=== PATIENT | male | born 1975 | race Hispanic/Latino ===

== ENCOUNTER 2018-08-30 12:00 | Emergency (ER) | payer OTHER ==
[2018-08-30] MEDS ORDERED: PREDNISOLONE 15 MG/5 ML ONE (13:16)
== END 2018-08-30 13:34 | disposition home or self-care (01) ==
LOC: EDH 12:00
DX: G51.0 Bell's palsy (principal)

== ENCOUNTER 2025-01-13 05:58 | Observation (INO) | payer BC ==
[2025-01-09 09:20] LABS: BASOPHILS # (AUTO) 0.03 K/uL (0.00-0.20); BASOPHILS % (AUTO) 0.4 % (0.0-5.0); EOSINOPHILS # (AUTO) 0.08 K/uL (0.00-0.70); EOSINOPHILS % (AUTO) 1.2 % (0.0-8.0); HEMATOCRIT 43.5 % (42-54); IMMATURE GRANULOCYTE ABSOLUTE 0.03 K/uL (0-1); LYMPHOCYTES # (AUTO) 2.5 K/uL (1.0-4.8); MEAN CORPUSCULAR HEMOGLOBIN 30.5 pg (27.0-33.0); MEAN CORPUSCULAR VOLUME 89.7 fL (79-99); MONOCYTES # (AUTO) 0.5 K/uL (0.1-1.0); MONOCYTES % (AUTO) 7.5 % (3.0-13.0); NEUTROPHILS # (AUTO) 3.6 K/uL (1.8-7.7); NEUTROPHILS % (AUTO) 53.5 % (40.0-77.0); PLATELET COUNT (AUTO) 182 K/uL (130-400); RED BLOOD CELL COUNT(AUTO) 4.85 MIL/uL (4.50-6.20); RED CELL DISTRIBUTION WIDTH 12.3 % (11.0-15.5); WHITE BLOOD COUNT (AUTO) 6.8 K/uL (4.8-10.8)
[2025-01-09 09:27] LABS: ALBUMIN 4.3 g/dL (3.5-5.0); POTASSIUM 4.7 mmol/L (3.5-5.1)
[2025-01-09 09:43] LABS: INR 1.03 (0.85-1.15); PROTHROMBIN TIME 10.9 SEC (9.6-11.6)
[2025-01-09 09:44] LABS: PARTIAL THROMBOPLASTIN TIME 26.8 SEC (26.3-35.5)
--- NOTE | 2025-01-09 10:00 | NUR ---
RE: IS INITIAL IS INITIAL INSTRUCTIONS DONE BY RT JACK DURING PREOP.
[2025-01-09 11:42] VITALS: PULSE 57; RESP 17; TEMP 97.9
[2025-01-13] VITALS (26 sets, daily range): BP systolic 108–158; BP diastolic 62–90; PULSE 69–117; RESP 13–20; TEMP 97.7–99.4; O2SAT 98–99
[~2025-01-13] VITALS: Ht 172.7 cm; Wt 107.4 kg
[~2025-01-13 05:58] MED LIST: NAPR-1506 PO
[2025-01-13] MEDS: LACTATED RINGERS 1000ML IV SCH (06:13)
[2025-01-13] MEDS: ceFAZolin SODIUM 2 GM VIAL ONE (06:19)
[2025-01-13] MEDS: GABAPENTIN 300 MG CAPSULE ONE (06:32)
[2025-01-13] MEDS: FAMOTIDINE 20MG VIAL IV ONE (06:32)
[2025-01-13] MEDS ORDERED: ketaMINE 50MG/ML SYRINGE 50 MG/ML DISP.SYRIN ONE (06:40)
[2025-01-13] MEDS ORDERED: ROPivacaine 0.5% 5MG/ML 30ML ONE (06:40)
[2025-01-13] MEDS ORDERED: proPOFol 10 MG/ML 20ML VIAL IV ONE (06:45)
[2025-01-13] MEDS ORDERED: FENTanyl CITRate PF 50 MCG/1 ML 2ML VIAL ONE (06:45)
[2025-01-13] MEDS ORDERED: rocuRONium bROMide 10MG/1ML 5ML VL ONE (06:46)
[2025-01-13] MEDS ORDERED: LIDOCAINE PF 100MG/5ML (2%) SYRINGE 5ML ONE (06:50)
[2025-01-13] MEDS ORDERED: MIDAZOLAM HCL 1 MG/ML 2ML VIAL ONE (06:50)
--- NOTE | 2025-01-13 07:15 | DS ---
Discharge Summary Hospital Course Summary: The patient was admitted to the hospital postoperatively on 01/13/2025 after undergoing right total hip arthroplasty. They did well with routine postoperative pain control. They worked well with physical therapy. They developed some acute blood loss anemia but remained asymptomatic. The hospital course was otherwise uncomplicated. They were subsequently able to be discharged on postoperative day [] once discharge arrangements were made with correction facility. Pilot Can Router(s): None Procedure(s): Right total hip arthroplasty, 01/13/2025 Assessment/Plan: ASSESSMENT: Status post right total hip arthroplasty Acute blood loss anemia PLAN: See discharge instructions Discharge Instructions: Begin working with physical therapy at the facility. Remembered do not flex the hip more than 90 and do not cross midline at the knees or ankles for the 1st six weeks. If you are side sleeper place a pillow between the knees and ankles to prevent the legs from crossing. Dressing may be removed 01/15/2025 and left open to air. Showers ok allowing soap and water to run over the wound. Pat dry. Do not submerge wound in tub/pool. Do not apply ointments. Do not apply Betadine. Do not apply peroxide. Ice packs to decrease pain/swelling. Prescriptions have been sent to the pharmacy: *Jackpot 5/325mg 1-2 tab every 6 hours as needed for severe pain. (please call for refills) Cyclobenzaprine 5mg 1 tab every 8 hours as needed for muscle spasm pain. Gabapentin 100mg 1 tab every 8 hours (may discontinue if drowsy). Colace 100mg 1 tab orally twice a day as needed for constipation. Aspirin 325mg for 30 days to prevent blood clots. Call for a follow-up appointment in 2-3 weeks at [facility]. Home Medications: Reported Medications Naproxen (Naproxen) 500 Mg Tablet., 500 MG PO BID PRN for PAIN, TAB 01/09/25 JH DURBIN MD Jan 13, 2025 07:15
[2025-01-13] MEDS ORDERED: dexaMETHasone SOD PHOSPHATE 10MG/ML 1ML VIAL ONE (07:25)
[2025-01-13] MEDS ORDERED: ondanSETRON 4MG INJ ONE (07:25)
[2025-01-13] MEDS: TRANEXAMIC ACID 1000MG/10ML ONE (07:25)
[2025-01-13] MEDS ORDERED: DiphenhydrAMINE HCL 50 MG/ML VIAL IVP PRN (07:30)
[2025-01-13] MEDS ORDERED: CALCIUM CARB 500MG PO PRN (07:30)
[2025-01-13] MEDS ORDERED: PoTASSium chloRIDE 20MEQ/100ML 100 ML IV PRN (07:30)
[2025-01-13] MEDS ORDERED: PoTASSium chl 10% ELIXIR 20MEQ 20 MEQ/15 ML UDCUP PO PRN (07:30)
[2025-01-13] MEDS ORDERED: ondanSETRON 4MG INJ IVP PRN (07:30)
[2025-01-13] MEDS ORDERED: HYDROcodone/APAP 5/325 1 TAB TABLET PO PRN (07:30)
[2025-01-13] MEDS: ketOROlac 15MG/ML VIAL (15MG/ML) IV SCH (07:30)
[2025-01-13] MEDS ORDERED: PoTASSium chloRIDE 20MEQ ER 20 MEQ ERTAB PO PRN (07:30)
[2025-01-13] MEDS ORDERED: FERROUS FUMARATE 324 MG TABLET PO PRN (07:30)
[2025-01-13] MEDS ORDERED: dexmedeTOMIDine HCL 200 MCG/2 ML VIAL IV ONE (07:49)
[2025-01-13] MEDS ORDERED: phenylEPHRINE HCL 10 MG/ML 1ML VIAL IV ONE (08:20)
[2025-01-13] MEDS: doCUSate SODIUM 100 MG CAP PO SCH (09:00)
[2025-01-13] MEDS: TRANEXAMIC ACID 1000MG/10ML IV ONE (09:30)
[2025-01-13] MEDS ORDERED: NEOSTIGMINE METHYLSULFATE 1MG/ML IV ONE (09:58)
[2025-01-13] MEDS ORDERED: GLYCOPYRROLATE 0.2 MG/ML 5 ML VIAL ONE (09:58)
[2025-01-13] MEDS: ondanSETRON 4MG INJ ONE (10:43)
[2025-01-13] MEDS: morPHINE 2 MG SYG ONE (10:45)
--- NOTE | 2025-01-13 11:09 | OP ---
Operative Note: DATE OF PROCEDURE: 01/13/25 SURGEON: JH DURBIN MD INSECTICIDE MIXER: Shelli Stoddard and Domingo Estrada ANESTHESIA: General and fascia iliaca block ANESTHESIOLOGIST/INSPECTOR FUEL HOSE: Divine Chatman PREOPERATIVE DIAGNOSIS: Right hip osteoarthritis POSTOPERATIVE DIAGNOSIS: Right hip osteoarthritis PROCEDURE: Right total hip arthroplasty ESTIMATED BLOOD LOSS: 200 cc INDICATIONS: 49-year-old male with right hip osteoarthritis failing conservative management. After discussion of the risks, benefits, and alternatives, the patient voluntarily agreed to undergo the aforementioned procedure. IMPLANTS: Sun and Nephew 56 mm R3 acetabular component with 6.5 mm screws x2 and central hole cover, 0 degree XLPE polyethylene liner, size 8 standard offset anthology stem with a 40 mm Oxinium +0 head DESCRIPTION OF PROCEDURE: Patient was properly identified in the preoperative holding area. Surgical site marking was verified and surgery consent reviewed. The patient was then taken to the operating room and placed in supine position on the OR table. After induction of general anesthesia, preoperative antibiotics were given. The patient was then transitioned in the lateral decubitus position with the right side up. All bony prominences were well-padded. Right lower extremity was then prepped and draped in the usual sterile fashion. Surgical time out was done verifying correct surgery, side, site, and location to be performed. We then began the procedure by making approximately 15 cm long incision centered over the greater trochanter. Here we came sharply through skin down to the fascia. Hemostasis was then achieved using Bovie electrocautery. We then incised fascia in line with the skin incision and finger split the tensor muscle proximally. We then placed our Charnley retractor. At this point we identified the vastus ridge and began elevating the full-thickness soft tissue flap off of the vastus ridge, splitting the vastus lateralis and gluteus muscles as necessary. We then proceeded to externally rotate the femur while making this flap. We resected part of the anterior capsule. The femoral head and neck was then delivered into view. We then dislocated the hip and performed a femoral neck osteotomy approximately half fingerbreadth proximal lesser trochanter. We then placed our retractors around the superior and anterior portion of the acetabulum and began to remove the labrum circumferentially. We then began reaming the acetabulum where we reamed up to a size 55 ensuring appropriate anteversion and abduction. We then proceeded to trial with the size 55 acetabular component and this appeared to sit well. We opened our size 56 acetabular component and after irrigating out the wound malleted this into place. It appeared to have good press-fit however we elected to place two of the 6.5 mm screws as well. We drilled and filled the screws in standard fashion in the posterior superior portion of the cup. We then placed the manhole cover on the center of the cup. The wound was thoroughly irrigated out further and we placed the acetabular liner and impacted this in place in standard fashion. We then proceeded to reposition our retractors to elevate the proximal femur out of the wound. We then used the box chisel and canal finder to began preparing the femoral side and sequentially broached up to the aforementioned size stem. Once we felt we had good fit, fill, and control of the femur with the stem in place we then used our trial head component and reduce the hip. Upon reduction, we had appropriate soft tissue tensioning, limb length and stable range of motion. We therefore dislocated the hip once more removed our trial components thoroughly irrigated the out the wound and placed our final components in standard fashion. The hip was then reduced with the final components in place. It was found to be stable through range of motion with appropriate soft tissue tensioning and appropriate limb length. At this point we placed a bump under the knee and the foot on the male with a stack of towels to allow for internal rotation. We repaired the abductors back to the greater trochanter using #5 Ethibond. We then repaired the rent in the vastus lateralis and gluteus muscles using #1 Vicryl in a running fashion. We removed our Charnley retractor and began to repair the IT band using #1 Vicryl in interrupted [id number] fashion. At this point we began to close her subcutaneous tissue using 2-0 Vicryl. Running 3-0 Monocryl in subcuticular fashion with Dermabond placed over this for the skin. Island barrier dressing was then applied. Patient was returned to supine position, awakened from anesthesia, and taken to the recovery room in stable condition. JH DURBIN MD Jan 13, 2025 11:09
[2025-01-13] MEDS: HYDROcodone/APAP 5/325 1 TAB TABLET ONE (11:20)
[2025-01-13] MEDS: CYCLOBENZAPRINE HCL 10 MG TABLET ONE (11:20)
[2025-01-13] MEDS: GABApentin 100 MG CAPSULE PO SCH (11:21)
--- NOTE | 2025-01-13 11:38 | HMCIMG ---
HIP BILAT 2VW HISTORY: Status post hip surgery COMPARISON: None TECHNIQUE: 2 images of bilateral hips were obtained. FINDINGS: Total right hip replacement changes are seen. Alignment appears be grossly adequate. There is no acute displaced fracture or dislocation. Degenerative changes are seen. IMPRESSION: 1. Findings as described above.
--- NOTE | 2025-01-13 11:47 | HMCIMG ---
HIP UNILAT 4VW RIGHT REASON: ORIF RIGHT RAMY, SX. COMPARISON: None TECHNIQUE: Fluoroscopic images of right hip were obtained. FINDINGS: Please see procedure report by referring physician. IMPRESSION: Intraoperative films.
[2025-01-13] MEDS: ceFAZolin SODIUM 2 GM VIAL IVP SCH (12:30)
[2025-01-13] MEDS: GABApentin 100 MG CAPSULE ONE (13:17)
[2025-01-13] MEDS: ketOROlac 15MG/ML VIAL (15MG/ML) ONE (13:24)
[2025-01-13] MEDS: acetaMINOPHEN 100 ML ONE (14:01)
[2025-01-13] MEDS: 0.9%NACL 1000ML 1,000 ML IV SCH (14:02)
[2025-01-13] MEDS: polyETHYLene GLYCol 3350 17 GM POWD.PACK PO SCH (14:03)
[2025-01-13] MEDS: HYDROcodone/APAP 5/325 1 TAB TABLET PO PRN ×2 (14:11→20:08)
--- NOTE | 2025-01-13 14:15 | NUR ---
Patient and spouse have not made a decision as to home vs rehab. Patient will need a SW if DC'd home. Patient has three step to enter home no handrails. Educated patient to request pain meds with breakfast and lunch to be ready for PT. Patient and spouse voiced understanding. Addendum: 01/13/25 at 1724 by MAXINE MCLAIN PT Amended: Links added.
--- NOTE | 2025-01-13 15:45 | NUR ---
ORTHO COORDINATOR: TEACHING REGARDING DVT AND PNEUMONIA PREVENTION, PAIN EXPECTATIONS AND PAIN MANAGEMENT. PATIENT UP TO CHAIR. ICE PACK APPLIED TO RIGHT HIP. B SCD SLEEVES IN ROOM. SCD MACHINE IN ROOM. INCENTIVE SPIROMETER AT BEDSIDE. PATIENT RETURN DEMONSTRATED PROPER USE AND FREQUENCY USE OF DEVICE. PATIENT RETURN DEMONSTRATED PROPER FOOT FLEXION/EXTENSION EXERCISES. NUMERIC PAIN SCALE REVIEWED. PATIENT INSTRUCTED TO PERFORM SELF PAIN EVALUATIONS EVERY FOUR HOURS, TO ASSIGN A NUMERIC PAIN SCORE AND TYPE OF PAIN. TO CALL FOR NURSE AND PROVIDE INFORMATION SO APPROPRIATE MEDICATION CAN BE ADMINISTERED FOR PAIN. PATIENT AND VERBALIZED UNDERSTANDING TO INSTRUCTIONS. PATIENT AND STATE DISCHARGE PLAN IS FOR REHAB. NO ADDITIONAL QUESTIONS OR CONCERNS AT THIS TIME.
[2025-01-13] MEDS: CYCLOBENZAPRINE HCL 10 MG TABLET PO PRN (20:08)
[2025-01-14] VITALS (8 sets, daily range): BP systolic 126–144; BP diastolic 71–82; PULSE 69–108; RESP 18–19; TEMP 98–98.9; O2SAT 97–99
[2025-01-14 04:42] LABS: HEMATOCRIT 36.1 % (42-54); MEAN CORPUSCULAR HEMOGLOBIN 30.7 pg (27.0-33.0); RED BLOOD CELL COUNT(AUTO) 3.88 MIL/uL (4.50-6.20); RED CELL DISTRIBUTION WIDTH 12.7 % (11.0-15.5); WHITE BLOOD COUNT (AUTO) 10.3 K/uL (4.8-10.8)
[2025-01-14 04:56] LABS: CREATININE 0.8 mg/dL (0.5-1.3)
[2025-01-14] MEDS: ASPIRIN 325MG EC TAB PO SCH (07:27)
[2025-01-14] MEDS: ASPIRIN 325MG TAB ONE (07:29)
[2025-01-14] MEDS ORDERED: ketOROlac 15MG/ML VIAL (15MG/ML) IV PRN (07:30)
--- NOTE | 2025-01-14 08:08 | PN ---
Ortho postop day one. This morning the patient is awake alert and oriented. He is out of bed in a chair resting comfortably in no acute distress reporting adequate pain control and a fairly restful night. Vital signs have remained stable afebrile. Laboratory results reviewed. Noted to have a drop in hemoglobin and hematocrit as expected after total hip arthroplasty. Patient is currently asymptomatic and we will address per protocol as necessary. Voiding on his own without difficulty. Operative findings discussed with the patient. Dressing is intact. Distal neurovascular exam intact. Gastrocnemius soft nontender. Negative Homans. SCD sleeves on but not connected since he is out of bed. Reinforced incentive spirometry. Ambulated yesterday with physical therapy we about 30 ft and is pending further physical therapy this morning. Patient is anticipating a skilled nurse facility upon discharge. Assessment: Status post right total hip arthroplasty. Asymptomatic acute postoperative blood loss anemia. Plan: Continue with Dr. Arthur's RAMY protocol and discharge planning. Asymptomatic acute postoperative blood loss anemia addressed with the protocol Vitals/Labs Vital Signs Date Time Temp Pulse Resp B/P (MAP) Pulse Ox O2 Delivery O2 Flow Rate FiO2 01/14/25 03:52 98.4 71 18 134/77 96 Room Air 21 01/13/25 20:00 2.0 Laboratory Tests 01/14/25 03:55 Medications Current Medications Lactated Ringer's 1,000 ml KVO IV Last administered on 01/13/25at 06:14; Start 01/13/25 at 06:30; Stop 02/12/25 at 06:29 Cefazolin Sodium 2 gm STK-MED ONCE .ROUTE Last administered on 01/13/25at 07:34; Start 01/13/25 at 06:15; Stop 01/13/25 at 06:16; Status DC Gabapentin 300 mg STK-MED ONCE .ROUTE; Start 01/13/25 at 06:32; Stop 01/13/25 at 06:32; Status DC Acetaminophen 100 ml @ As Directed STK-MED ONCE .ROUTE; Start 01/13/25 at 06:32; Stop 01/13/25 at 06:32; Status DC Famotidine 20 mg STK-MED ONCE IV; Start 01/13/25 at 06:32; Stop 01/13/25 at 06:33; Status DC Ropivacaine 150 mg STK-MED ONCE .ROUTE; Start 01/13/25 at 06:40; Stop 01/13/25 at 06:40; Status DC Ketamine HCl 50 mg STK-MED ONCE .ROUTE; Start 01/13/25 at 06:40; Stop 01/13/25 at 06:40; Status DC Propofol 200 mg STK-MED ONCE IV; Start 01/13/25 at 06:45; Stop 01/13/25 at 06:45; Status DC Fentanyl Citrate 100 mcg STK-MED ONCE .ROUTE; Start 01/13/25 at 06:45; Stop 01/13/25 at 06:46; Status DC Rocuronium Hickory 50 mg STK-MED ONCE .ROUTE; Start 01/13/25 at 06:46; Stop 01/13/25 at 06:46; Status DC Lidocaine HCl 100 mg STK-MED ONCE .ROUTE; Start 01/13/25 at 06:50; Stop 01/13/25 at 06:50; Status DC Midazolam HCl 2 mg STK-MED ONCE .ROUTE; Start 01/13/25 at 06:50; Stop 01/13/25 at 06:51; Status DC Tranexamic Acid 1,000 mg STK-MED ONCE .ROUTE Last administered on 01/13/25at 07:25; Start 01/13/25 at 06:59; Stop 01/13/25 at 07:00; Status DC Sodium Chloride 1,000 ml @ 100 mls/hr Q10H IV Last administered on 01/14/25at 03:15; Start 01/13/25 at 07:30; Stop 01/14/25 at 07:29; Status DC Polyethylene Glycol 17 gm DAILY PO Last administered on 01/14/25at 07:26; Start 01/13/25 at 09:00; Stop 02/12/25 at 08:59 Bisacodyl 10 mg DAILY PRN RC; Start 01/16/25 at 07:30; Stop 02/15/25 at 07:29 Ketorolac Tromethamine 15 mg Q6H PRN IV; Start 01/14/25 at 07:30; Stop 01/19/25 at 07:29 Ferrous Fumarate 324 mg DAILY PRN PO; Start 01/13/25 at 07:30; Stop 02/12/25 at 07:29 Calcium Carbonate 500 mg Q12H PRN PO; Start 01/13/25 at 07:30; Stop 02/12/25 at 07:29 Diphenhydramine HCl 25 mg Q6H PRN IVP; Start 01/13/25 at 07:30; Stop 02/12/25 at 07:29 Ondansetron HCl 4 mg Q6H PRN IVP; Start 01/13/25 at 07:30; Stop 02/12/25 at 07:29 Cefazolin Sodium 2 gm Q8H IVP Last administered on 01/13/25at 20:00; Start 01/13/25 at 12:30; Stop 01/13/25 at 20:31; Status DC Gabapentin 100 mg TID PO Last administered on 01/14/25at 07:26; Start 01/13/25 at 09:00; Stop 02/12/25 at 08:59 Cyclobenzaprine HCl 5 mg Q8H PRN PO Last administered on 01/13/25at 20:08; Start 01/13/25 at 07:30; Stop 02/12/25 at 07:29 Docusate Sodium 100 mg BID PO Last administered on 01/14/25at 07:26; Start 01/13/25 at 09:00; Stop 02/12/25 at 08:59 Ketorolac Tromethamine 15 mg Q8H IV Last administered on 01/13/25at 23:19; Start 01/13/25 at 07:30; Stop 01/13/25 at 23:31; Status DC Aspirin 325 mg DAILY PO Last administered on 01/14/25at 07:27; Start 01/14/25 at 09:00; Stop 02/13/25 at 08:59 Potassium Chloride 100 ml @ 100 mls/hr AD PRN IV; Start 01/13/25 at 07:30; Stop 02/12/25 at 07:29 Potassium Chloride 20 meq AD PRN PO; Start 01/13/25 at 07:30; Stop 02/12/25 at 07:29 Potassium Chloride 20 meq AD PRN PO; Start 01/13/25 at 07:30; Stop 02/12/25 at 07:29 Tramadol HCl 50 mg Q6H PRN PO; Start 01/13/25 at 07:30; Stop 01/18/25 at 07:29 Acetaminophen/ Hydrocodone Bitart Q4H PRN PO; Start 01/13/25 at 07:30; Stop 01/13/25 at 07:24; Status DC Acetaminophen/ Hydrocodone Bitart 1 tab Q6H PRN PO Last administered on 01/14/25at 07:27; Start 01/13/25 at 07:30; Stop 01/18/25 at 07:29 Acetaminophen/ Hydrocodone Bitart 1 tab Q6H PRN PO Last administered on 01/14/25at 03:16; Start 01/13/25 at 07:30; Stop 01/18/25 at 07:29 Ondansetron HCl 4 mg STK-MED ONCE .ROUTE; Start 01/13/25 at 07:25; Stop 01/13/25 at 07:25; Status DC Dexamethasone Sodium Phosphate 10 mg STK-MED ONCE .ROUTE; Start 01/13/25 at 07:25; Stop 01/13/25 at 07:25; Status DC Dexmedetomidine HCl 200 mcg STK-MED ONCE IV; Start 01/13/25 at 07:49; Stop 01/13/25 at 07:50; Status DC Phenylephrine HCl 10 mg STK-MED ONCE IV; Start 01/13/25 at 08:20; Stop 01/13/25 at 08:20; Status DC Tranexamic Acid 1,000 mg STK-MED ONCE IV Last administered on 01/13/25at 09:30; Start 01/13/25 at 09:30; Stop 01/13/25 at 09:32; Status DC Glycopyrrolate 1 mg STK-MED ONCE .ROUTE; Start 01/13/25 at 09:58; Stop 01/13/25 at 09:58; Status DC Neostigmine Methylsulfate 10 mg STK-MED ONCE IV; Start 01/13/25 at 09:58; Stop 01/13/25 at 09:59; Status DC Morphine Sulfate 2 mg STK-MED ONCE .ROUTE Last administered on 01/13/25at 10:45; Start 01/13/25 at 10:35; Stop 01/13/25 at 10:35; Status DC Ondansetron HCl 4 mg STK-MED ONCE .ROUTE Last administered on 01/13/25at 10:43; Start 01/13/25 at 10:36; Stop 01/13/25 at 10:37; Status DC Acetaminophen/ Hydrocodone Bitart 1 tab STK-MED ONCE .ROUTE Last administered on 01/13/25at 11:20; Start 01/13/25 at 11:18; Stop 01/13/25 at 11:18; Status DC Cyclobenzaprine HCl 10 mg STK-MED ONCE .ROUTE Last administered on 01/13/25at 11:20; Start 01/13/25 at 11:18; Stop 01/13/25 at 11:18; Status DC Gabapentin 100 mg STK-MED ONCE .ROUTE; Start 01/13/25 at 11:18; Stop 01/13/25 at 11:18; Status DC Ketorolac Tromethamine 15 mg STK-MED ONCE .ROUTE Last administered on 01/13/25at 13:24; Start 01/13/25 at 13:20; Stop 01/13/25 at 13:20; Status DC Aspirin 325 mg STK-MED ONCE .ROUTE Last administered on 01/14/25at 07:29; Start 01/14/25 at 07:25; Stop 01/14/25 at 07:25; Status DC HARLEY ARMSTRONG NP Jan 14, 2025 08:08
--- NOTE | 2025-01-14 11:58 | NUR ---
[facility] CM MET WITH PT AND SPOUSE THIS MORNING, INITIAL ASSESSMENT DONE. PATIENT IS INDEPENDENT PRIOR TO ADMISSION, LIVES AT HOME WITH AND 2 ADULT CHILDREN. PATIENT HAS A BUILT IN [employer]. DENIES ANY OTHER EQUIPMENT/SERVICES. FEELS SAFE TO GO BACK HOME, ABLE TO ASSIST WITH TRANSPORTATION AND NEEDS NECESSARY. DISCUSSED MD RECOMMENDATIONS FOR SHORT TERM REHAB AT SNF, PT AGREEABLE, CONSENT SIGNED SADI FOR [facility]. [facility] ONCE APPROVED. CM TO CONTINUE TO FOLLOW UP. Addendum: 01/14/25 at 1202 by MEL PAYTON LVN CM Amended: Links added.
[2025-01-14] MEDS: HYDROcodone/APAP 5/325 1 TAB TABLET PO PRN (17:22)
--- NOTE | 2025-01-14 22:10 | PN ---
PROGRESS NOTE PROGRESS NOTE DATE OF PROGRESS NOTE: 01/14/25 SUBJECTIVE: Patient is status post hip surgery VITAL SIGNS Vital Signs Date Time Temp Pulse Resp B/P (MAP) Pulse Ox O2 Delivery O2 Flow Rate FiO2 01/14/25 20:38 98.1 76 19 142/77 99 Room Air 21 01/14/25 08:00 0 PHYSICAL EXAM: Atraumatic normocephalic head Neck is supple Lungs are clear to auscultation percussion Heart was S1-S2 is heard Extremities no pedal edema Skin exam unremarkable LABORATORY: Laboratory Result(s) Test 01/14/25 03:55 White Blood Count 10.3 K/uL (4.8-10.8) Red Blood Count 3.88 MIL/uL (4.50-6.20) Hemoglobin 11.9 g/dL (14.0-18.0) Hematocrit 36.1 % (42-54) Mean Corpuscular Volume 93.0 fL (79-99) Mean Corpuscular Hemoglobin 30.7 pg (27.0-33.0) Mean Corpuscular Hemoglobin Concent 33.0 g/dL (32.0-36.0) Red Cell Distribution Width 12.7 % (11.0-15.5) Platelet Count 156 K/uL (130-400) Mean Platelet Volume 12.6 fL (7.5-10.5) Nucleated Red Blood Cells 0.0 % (0.0-0.19) Sodium Level 137 mmol/L (136-145) Potassium Level 4.0 mmol/L (3.5-5.1) Chloride Level 104 mmol/L (101-111) Carbon Dioxide Level 27 mmol/L (21-32) Blood Urea Nitrogen 14 mg/dL (7-18) Creatinine 0.8 mg/dL (0.5-1.3) Glomerular Filtration Rate Calc 107 mL/min (>90) Random Glucose 140 mg/dL (70-105) Total Calcium 8.3 mg/dL (8.5-10.1) INPATIENT MEDS: Current Medications Medications Dose Ordered Sig/Rosaline Start Time Stop Time Status Last Admin Lactated Ringer's 1,000 ml KVO 01/13/25 06:30 02/12/25 06:29 01/13/25 06:14 Polyethylene Glycol 17 gm DAILY 01/13/25 09:00 02/12/25 08:59 01/14/25 07:26 Bisacodyl 10 mg DAILY PRN 01/16/25 07:30 02/15/25 07:29 Ketorolac Tromethamine 15 mg Q6H PRN 01/14/25 07:30 01/19/25 07:29 Ferrous Fumarate 324 mg DAILY PRN 01/13/25 07:30 02/12/25 07:29 Calcium Carbonate 500 mg Q12H PRN 01/13/25 07:30 02/12/25 07:29 Diphenhydramine HCl 25 mg Q6H PRN 01/13/25 07:30 02/12/25 07:29 Ondansetron HCl 4 mg Q6H PRN 01/13/25 07:30 02/12/25 07:29 Gabapentin 100 mg TID 01/13/25 09:00 02/12/25 08:59 01/14/25 21:40 Cyclobenzaprine HCl 5 mg Q8H PRN 01/13/25 07:30 02/12/25 07:29 01/14/25 21:40 Docusate Sodium 100 mg BID 01/13/25 09:00 02/12/25 08:59 01/14/25 21:39 Aspirin 325 mg DAILY 01/14/25 09:00 02/13/25 08:59 01/14/25 07:27 Potassium Chloride 100 ml @ 100 mls/hr AD PRN 01/13/25 07:30 02/12/25 07:29 Potassium Chloride 20 meq AD PRN 01/13/25 07:30 02/12/25 07:29 Potassium Chloride 20 meq AD PRN 01/13/25 07:30 02/12/25 07:29 Tramadol HCl 50 mg Q6H PRN 01/13/25 07:30 01/18/25 07:29 Acetaminophen/ Hydrocodone Bitart 1 tab Q6H PRN 01/13/25 07:30 01/18/25 07:29 01/14/25 21:40 Acetaminophen/ Hydrocodone Bitart 2 tab Q6H PRN 01/14/25 16:00 01/18/25 07:29 01/14/25 17:22 PLAN: Postop pain DVT prophylaxis to continue and monitor no other active medical issues discharge planning probably to [facility] SAURABH HURTADO MD Jan 14, 2025 22:10
[2025-01-15 04:03] VITALS: BP 118/78; PULSE 76; RESP 19; TEMP 99.3
[2025-01-15 08:00] VITALS: BP 129/75; PULSE 87; RESP 17; TEMP 98.5; O2SAT 96
[2025-01-15] MEDS: traMADol HCL 50 MG TABLET PO PRN (08:06)
[2025-01-15 12:00] VITALS: BP 133/80; PULSE 74; RESP 17; TEMP 98.7
--- NOTE | 2025-01-15 14:15 | NUR ---
ORTHO COORDINATOR: REINFORCED TEACHING. PATIENT UP TO CHAIR. REPORTS PAIN MANAGED. HAS SHOWERED. REINFORCED NEED TO CONTINUE USE OF INCENTIVE SPIROMETER AND FOOT FLEXION/EXTENSION EXERCISES. ENCOURAGED PATIENT TO CONTINUE PAIN MANAGEMENT PRIOR TO PHYSICAL THERAPY WHILE IN REHAB AND DURING PERIODS OF HIGH ACTIVITY. PATIENT HAS NO FURTHER QUESTIONS/CONCERNS AT THIS TIME.
[2025-01-15 16:00] VITALS: BP 118/70; PULSE 88; RESP 17; TEMP 98.8
[2025-01-15 16:02] VITALS: RESP 16
--- NOTE | 2025-01-15 16:06 | PN ---
Ortho postop day two. This afternoon the patient is out of bed in a chair resting comfortably reporting adequate pain control. He states that he had a small BM today after warm prune juice. Vital signs stable, afebrile No acute distress, alert and oriented x3 Nonlabored breathing Right hip: -Dressing is intact. Removed. -Incision is clean and dry. -Distal neurovascular exam intact. -Gastrocnemius soft nontender. -Negative Homans. -SCD sleeves on but not connected since he is out of bed. Ambulated 100 ft with physical therapy this morning Discharge planning is for [facility] Assessment: POD 2 Status post right total hip arthroplasty. Asymptomatic acute postoperative blood loss anemia. Plan: Continue with Dr. Arthur's RAMY protocol and discharge planning. Asymptomatic acute postoperative blood loss anemia addressed with the protocol Stable for transfer once approved for SNF Vitals/Labs Vital Signs Date Time Temp Pulse Resp B/P (MAP) Pulse Ox O2 Delivery O2 Flow Rate FiO2 01/15/25 12:00 98.8 74 17 133/80 98 Room Air 01/15/25 04:03 21 01/14/25 19:05 0 Medications Current Medications Lactated Ringer's 1,000 ml KVO IV Last administered on 01/13/25at 06:14; Start 01/13/25 at 06:30; Stop 01/15/25 at 09:58; Status DC Cefazolin Sodium 2 gm STK-MED ONCE .ROUTE Last administered on 01/13/25at 07:34; Start 01/13/25 at 06:15; Stop 01/13/25 at 06:16; Status DC Gabapentin 300 mg STK-MED ONCE .ROUTE; Start 01/13/25 at 06:32; Stop 01/13/25 at 06:32; Status DC Acetaminophen 100 ml @ As Directed STK-MED ONCE .ROUTE; Start 01/13/25 at 06:32; Stop 01/13/25 at 06:32; Status DC Famotidine 20 mg STK-MED ONCE IV; Start 01/13/25 at 06:32; Stop 01/13/25 at 06:33; Status DC Ropivacaine 150 mg STK-MED ONCE .ROUTE; Start 01/13/25 at 06:40; Stop 01/13/25 a t 06:40; Status DC Ketamine HCl 50 mg STK-MED ONCE .ROUTE; Start 01/13/25 at 06:40; Stop 01/13/25 at 06:40; Status DC Propofol 200 mg STK-MED ONCE IV; Start 01/13/25 at 06:45; Stop 01/13/25 at 06:45; Status DC Fentanyl Citrate 100 mcg STK-MED ONCE .ROUTE; Start 01/13/25 at 06:45; Stop 01/13/25 at 06:46; Status DC Rocuronium [place] 50 mg STK-MED ONCE .ROUTE; Start 01/13/25 at 06:46; Stop 01/13/25 at 06:46; Status DC Lidocaine HCl 100 mg STK-MED ONCE .ROUTE; Start 01/13/25 at 06:50; Stop 01/13/25 at 06:50; Status DC Midazolam HCl 2 mg STK-MED ONCE .ROUTE; Start 01/13/25 at 06:50; Stop 01/13/25 at 06:51; Status DC Tranexamic Acid 1,000 mg STK-MED ONCE .ROUTE Last administered on 01/13/25at 07:25; Start 01/13/25 at 06:59; Stop 01/13/25 at 07:00; Status DC Sodium Chloride 1,000 ml @ 100 mls/hr Q10H IV Last administered on 01/14/25at 03:15; Start 01/13/25 at 07:30; Stop 01/14/25 at 07:29; Status DC Polyethylene Glycol 17 gm DAILY PO Last administered on 01/15/25at 08:06; Start 01/13/25 at 09:00; Stop 02/12/25 at 08:59 Bisacodyl 10 mg DAILY PRN RC; Start 01/16/25 at 07:30; Stop 02/15/25 at 07:29 Ketorolac Tromethamine 15 mg Q6H PRN IV; Start 01/14/25 at 07:30; Stop 01/19/25 at 07:29 Ferrous Fumarate 324 mg DAILY PRN PO; Start 01/13/25 at 07:30; Stop 02/12/25 at 07:29 Calcium Carbonate 500 mg Q12H PRN PO; Start 01/13/25 at 07:30; Stop 02/12/25 at 07:29 Diphenhydramine HCl 25 mg Q6H PRN IVP; Start 01/13/25 at 07:30; Stop 02/12/25 at 07:29 Ondansetron HCl 4 mg Q6H PRN IVP; Start 01/13/25 at 07:30; Stop 02/12/25 at 07:29 Cefazolin Sodium 2 gm Q8H IVP Last administered on 01/13/25at 20:00; Start 01/13/25 at 12:30; Stop 01/13/25 at 20:31; Status DC Gabapentin 100 mg TID PO Last administered on 01/15/25at 14:30; Start 01/13/25 at 09:00; Stop 02/12/25 at 08:59 Cyclobenzaprine HCl 5 mg Q8H PRN PO Last administered on 01/14/25at 21:40; Start 01/13/25 at 07:30; Stop 02/12/25 at 07:29 Docusate Sodium 100 mg BID PO Last administered on 01/15/25at 08:05; Start 01/13/25 at 09:00; Stop 02/12/25 at 08:59 Ketorolac Tromethamine 15 mg Q8H IV Last administered on 01/13/25at 23:19; Start 01/13/25 at 07:30; Stop 01/13/25 at 23:31; Status DC Aspirin 325 mg DAILY PO Last administered on 01/15/25at 08:06; Start 01/14/25 at 09:00; Stop 02/13/25 at 08:59 Potassium Chloride 100 ml @ 100 mls/hr AD PRN IV; Start 01/13/25 at 07:30; Stop 02/12/25 at 07:29 Potassium Chloride 20 meq AD PRN PO; Start 01/13/25 at 07:30; Stop 02/12/25 at 07:29 Potassium Chloride 20 meq AD PRN PO; Start 01/13/25 at 07:30; Stop 02/12/25 at 07:29 Tramadol HCl 50 mg Q6H PRN PO Last administered on 01/15/25at 08:06; Start 01/13/25 at 07:30; Stop 01/18/25 at 07:29 Acetaminophen/ Hydrocodone Bitart Q4H PRN PO; Start 01/13/25 at 07:30; Stop 01/13/25 at 07:24; Status DC Acetaminophen/ Hydrocodone Bitart 1 tab Q6H PRN PO Last administered on 01/14/25at 21:40; Start 01/13/25 at 07:30; Stop 01/18/25 at 07:29 Acetaminophen/ Hydrocodone Bitart 1 tab Q6H PRN PO Last administered on 01/14/25at 10:25; Start 01/13/25 at 07:30; Stop 01/14/25 at 15:31; Status DC Ondansetron HCl 4 mg STK-MED ONCE .ROUTE; Start 01/13/25 at 07:25; Stop 01/13/25 at 07:25; Status DC Dexamethasone Sodium Phosphate 10 mg STK-MED ONCE .ROUTE; Start 01/13/25 at 07:25; Stop 01/13/25 at 07:25; Status DC Dexmedetomidine HCl 200 mcg STK-MED ONCE IV; Start 01/13/25 at 07:49; Stop 01/13/25 at 07:50; Status DC Phenylephrine HCl 10 mg STK-MED ONCE IV; Start 01/13/25 at 08:20; Stop 01/13/25 at 08:20; Status DC Tranexamic Acid 1,000 mg STK-MED ONCE IV Last administered on 01/13/25at 09:30; Start 01/13/25 at 09:30; Stop 01/13/25 at 09:32; Status DC Glycopyrrolate 1 mg STK-MED ONCE .ROUTE; Start 01/13/25 at 09:58; Stop 01/13/25 at 09:58; Status DC Neostigmine Methylsulfate 10 mg STK-MED ONCE IV; Start 01/13/25 at 09:58; Stop 01/13/25 at 09:59; Status DC Morphine Sulfate 2 mg STK-MED ONCE .ROUTE Last administered on 01/13/25at 10:45; Start 01/13/25 at 10:35; Stop 01/13/25 at 10:35; Status DC Ondansetron HCl 4 mg STK-MED ONCE .ROUTE Last administered on 01/13/25at 10:43; Start 01/13/25 at 10:36; Stop 01/13/25 at 10:37; Status DC Acetaminophen/ Hydrocodone Bitart 1 tab STK-MED ONCE .ROUTE Last administered on 01/13/25at 11:20; Start 01/13/25 at 11:18; Stop 01/13/25 at 11:18; Status DC Cyclobenzaprine HCl 10 mg STK-MED ONCE .ROUTE Last administered on 01/13/25at 11:20; Start 01/13/25 at 11:18; Stop 01/13/25 at 11:18; Status DC Gabapentin 100 mg STK-MED ONCE .ROUTE; Start 01/13/25 at 11:18; Stop 01/13/25 at 11:18; Status DC Ketorolac Tromethamine 15 mg STK-MED ONCE .ROUTE Last administered on 01/13/25at 13:24; Start 01/13/25 at 13:20; Stop 01/13/25 at 13:20; Status DC Aspirin 325 mg STK-MED ONCE .ROUTE Last administered on 01/14/25at 07:29; Start 01/14/25 at 07:25; Stop 01/14/25 at 07:25; Status DC Acetaminophen/ Hydrocodone Bitart 2 tab Q6H PRN PO Last administered on 01/15/25at 11:48; Start 01/14/25 at 16:00; Stop 01/18/25 at 07:29 JH ARTHUR MD Jan 15, 2025 16:06
[2025-01-15 20:00] VITALS: BP 127/77; PULSE 84; RESP 20; TEMP 98.3; O2SAT 99
--- NOTE | 2025-01-15 21:01 | PN ---
SUBJECTIVE: The patient is status post right hip surgery. She has been comfortable. Afebrile. No fever or chills. No chest pain or palpitations. No nausea or vomiting. OBJECTIVE: GENERAL: Currently awake, alert, and oriented in person, time, and place. Not in distress. VITAL SIGNS: Blood pressure 129/75, pulse 87, respirations 17. HEENT: Normocephalic, atraumatic. LUNGS: Clear to auscultation. HEART: S1, S2 are distant. ABDOMEN: Soft and nontender. LABORATORY DATA: WBC count 10.3, hemoglobin 11.9, and platelets 156. Sodium 137, potassium 4, BUN 14, creatinine 0.8. ASSESSMENT AND PLAN: * Status post right hip surgery. * Continue DVT prophylaxis. * GI prophylaxis. * Pulmonary prophylaxis. * Continue physical therapy. * Plan to discharge to a SNF. TID: [id number] RECEIPT: [id number]
[2025-01-16] VITALS: BP 136/66; PULSE 83; RESP 20; TEMP 98.3
[2025-01-16 04:00] VITALS: BP 128/77; PULSE 79; RESP 20; TEMP 98.2
[2025-01-16] MEDS ORDERED: BisaCODYL 10 MG SUPP.RECT RC PRN (07:30)
[2025-01-16 08:00] VITALS: BP 122/64; PULSE 97; RESP 18; TEMP 99.4; O2SAT 99
[2025-01-16] MEDS ORDERED: DOCU-116 PO (11:58)
[2025-01-16] MEDS ORDERED: ASPI-891 PO (11:58)
[2025-01-16] MEDS ORDERED: GABA100C PO (11:58)
[2025-01-16] MEDS ORDERED: CYCL-309 PO (11:58)
[2025-01-16] MEDS ORDERED: HYDR-4060 PO (11:58)
[2025-01-16 12:00] VITALS: BP 133/76; PULSE 76; RESP 18; TEMP 98.2
--- NOTE | 2025-01-16 14:59 | NUR ---
NOTE PT DC AT THIS TIME, REPORT GIVEN TO MERISSA OF N, EDUCATED PT ON DC INFORMATION, MEDICATION AND FOLLOW UP, DC IV, PENDING PT TRANSPORTATION
--- NOTE | 2025-01-16 19:51 | PN ---
SUBJECTIVE: The patient is comfortable, afebrile. Having no fever, chills. No chest pain, palpitations. No nausea or vomiting. Tolerating physical therapy. He is status post right knee arthroplasty. OBJECTIVE: GENERAL: Currently, awake, alert, oriented in person, time and place, not in distress. VITAL SIGNS: Blood pressure 122/64, pulse 97, respirations 18. HEENT: Normocephalic, atraumatic. LUNGS: Clear to auscultation. HEART: S1, S2 are distant. ABDOMEN: Soft, nontender. EXTREMITIES: No clubbing or cyanosis. Right hip surgical wound clean. ASSESSMENT AND PLAN: * Status post right total hip arthroplasty. Continue recommendation by Surgery. The patient will be discharged to SNF. * Continue with physical therapy and rehab. * Dyslipidemia. Continue diet and resume his home medications. * Continue DVT prophylaxis and GI prophylaxis. * Follow up in my office after discharge from SNF. TID: [id number] RECEIPT: [id number]
== END 2025-01-16 16:20 | disposition home or self-care (01) ==
LOC: DAH 05:58 → DAHIP 05:59 → 4AH 13:58
PROVIDERS: ADMIT Student in an Organized Health Care Education/Training Program; ATTEND Student in an Organized Health Care Education/Training Program
DX: M16.11 Unilateral primary osteoarthritis, right hip (principal); D62 Acute posthemorrhagic anemia; E78.5 Hyperlipidemia, unspecified; E66.9 Obesity, unspecified; Z68.36 Body mass index [BMI] 36.0-36.9, adult; Z79.899 Other long term (current) drug therapy
CPT/HCPCS: 82040; 80048 ×2; 85025; 85610; 85730; 84134; 86140; 36415 ×2; 87641; 27130; 96376; 96365; 96375; 73503; 73521; 97161; 97116 ×6; 85027; 97530 ×5; 82948; G0378 ×81; A4663; C1776; J3490 ×7; J3010; J1100; J2270; J2003; J2250; J2704; J2405 ×2; J2710; J2795; J1885 ×3; J2371; J0690 ×2; A4649 ×2; A6255; A4215; A4223 ×2; A4222; A4221; A4216; J7030